=== PATIENT | female | born 1950 | race Caucasian/White ===

== ENCOUNTER 2017-01-07 08:38 | Inpatient (IN) | payer MEDICAID ==
[2017-01-03 12:45] LABS: BASOPHIL % 0.4 % (0-2); PLATELET COUNT 240 x10^3mcL (130-400)
[2017-01-03 12:46] LABS: RED CELL DISTRIBUTION WIDTH 16.3 % (11.5-14.5)
[2017-01-03 12:54] LABS: ALBUMIN 3.4 g/dL (3.4-5.0); ALKALINE PHOSPHATASE 53 U/L (46-116); ALT/SGPT 54 U/L (14-59); AST/SGOT 49 U/L (15-37); BILIRUBIN TOTAL 0.68 mg/dL (0.20-1.00); CALCIUM 8.6 mg/dL (8.5-10.1); CARBON DIOXIDE 31.6 mmol/L (21-32); CHLORIDE SERUM 108 mmol/L (98-107); CREATININE SERUM 0.7 mg/dL (0.6-1.0); GFR1 > 60 mL/min; GLUCOSE SERUM 96 mg/dL (74-106); POTASSIUM SERUM 3.7 mmol/L (3.5-5.1); SODIUM SERUM 145 mmol/L (136-145); TOTAL PROTEIN, SERUM 6.1 g/dL (6.4-8.2)
[~2017-01-07] VITALS: Ht 152.4 cm; Wt 91.1 kg
[2017-01-07 08:48] VITALS: BP 157/93
[2017-01-07 16:11] VITALS: BP 148/46
[2017-01-07 21:47] VITALS: BP 116/57
[2017-01-07 22:38] LABS: T3 TOTAL 1.46 ng/mL
[2017-01-07 22:43] LABS: MAGNESIUM 1.7 mg/dL (1.8-2.4); PHOSPHOROUS 4.9 mg/dL (2.5-4.9)
[2017-01-07 23:30] LABS: FREE T4 1.22 ng/dL (0.76-1.46); FREE THYROXINE INDEX 3.5 ug/dL (1.4-4.5); T4(THYROXINE) 9.9 ug/dL (4.7-13.3)
[2017-01-08 05:37] VITALS: BP 117/61
[2017-01-08 06:33] LABS: BASOPHIL % 0.5 % (0-2); PLATELET COUNT 192 x10^3mcL (130-400)
[2017-01-08 06:36] LABS: RED CELL DISTRIBUTION WIDTH 15.5 % (11.5-14.5)
[2017-01-08 06:42] LABS: CALCIUM 8.2 mg/dL (8.5-10.1); CARBON DIOXIDE 29.2 mmol/L (21-32); CHLORIDE SERUM 107 mmol/L (98-107); CREATININE SERUM 0.7 mg/dL (0.6-1.0); GFR1 > 60 mL/min; GLUCOSE SERUM 94 mg/dL (74-106); POTASSIUM SERUM 3.4 mmol/L (3.5-5.1); SODIUM SERUM 142 mmol/L (136-145)
[2017-01-08 09:16] VITALS: BP 144/59
[2017-01-08 09:59] VITALS: BP 144/59
[2017-01-08] MEDS ORDERED: NORCO1 TA2 PO (10:34)
[2017-01-08] MEDS ORDERED: COLACE100 MG PO (10:35)
== END 2017-01-08 12:40 | disposition home or self-care (01) | DRG 121 ==
LOC: DS 08:38 → OR 12:00 → DS 12:00 → MU 14:34
PROVIDERS: Surgery; ADMIT Family Medicine
PROC: 07B60ZZ Excision of Left Axillary Lymphatic, Open Approach (ICD-10-PCS; 2017-01-07)
PROC: 0HBU0ZZ Excision of Left Breast, Open Approach (ICD-10-PCS; principal; 2017-01-07 11:00)
DX: J98.01 Acute bronchospasm (principal); C50.912 Malignant neoplasm of unspecified site of left female breast; Z92.21 Personal history of antineoplastic chemotherapy; Z17.0 Estrogen receptor positive status [ER+]; E66.9 Obesity, unspecified; Z68.39 Body mass index [BMI] 39.0-39.9, adult
CPT/HCPCS: 83880; 84439; 88344; 94150; J0330; J0690; J1170; J1650; J2001; J2250; J2704; J3010; J3490; J7030; J7120; Q0092; Q9968

== ENCOUNTER → 2018-01-23 | Outpatient (CLI) | payer BC ==
[~2018-01-23] MED LIST: COLACE100 MG PO; NORCO1 TA2 PO
== END | disposition home or self-care (01) ==
LOC: MA 01-09 13:30
PROC: BH02ZZZ Plain Radiography of Bilateral Breasts (ICD-10-PCS; principal; 2018-01-23)
DX: C50.212 Malignant neoplasm of upper-inner quadrant of left female breast (principal); Z17.0 Estrogen receptor positive status [ER+]
CPT/HCPCS: 77066

== ENCOUNTER → 2018-07-20 | Outpatient (CLI) | payer MEDICAID | END | disposition home or self-care (01) | LOC: MA 13:00 | PROC: BH01ZZZ Plain Radiography of Left Breast (ICD-10-PCS; principal; 2018-07-20) | DX: C50.212 Malignant neoplasm of upper-inner quadrant of left female breast (principal) | CPT/HCPCS: 77065 ==

== ENCOUNTER → 2019-01-26 | Outpatient (CLI) | payer MEDICAID | END | disposition home or self-care (01) | LOC: MA 08:42 | PROC: BH02ZZZ Plain Radiography of Bilateral Breasts (ICD-10-PCS; principal; 2019-01-26) | DX: C50.212 Malignant neoplasm of upper-inner quadrant of left female breast (principal) | CPT/HCPCS: 77066 ==

== ENCOUNTER → 2020-03-17 | Outpatient (CLI) | payer MEDICAID | END | disposition home or self-care (01) | LOC: MA 08:04 | PROVIDERS: ATTEND Internal Medicine Medical Oncology | PROC: BH02ZZZ Plain Radiography of Bilateral Breasts (ICD-10-PCS; principal; 2020-03-17) | DX: C50.212 Malignant neoplasm of upper-inner quadrant of left female breast (principal); Z12.31 Encounter for screening mammogram for malignant neoplasm of breast | CPT/HCPCS: 77067 ==